=== PATIENT | male | born 1975 | race Two or more races ===

== ENCOUNTER 2017-12-21 08:57 | Emergency (ER) | payer MEDICAID ==
[~2017-12-21] VITALS: Ht 167.6 cm; Wt 79.4 kg
[2017-12-21 09:09] VITALS: BP 158/101
== END 2017-12-21 09:36 | disposition home or self-care (01) ==
LOC: ER 09:06
DX: B35.0 Tinea barbae and tinea capitis (principal)
CPT/HCPCS: 99282; A4606; Z7610